=== PATIENT | female | born 1950 | race Caucasian/White ===

== ENCOUNTER 2016-07-23 12:34 | Inpatient (IN) | payer MEDICARE, OTHER ==
--- NOTE | ~2016-07-23 | DS ---
Discharge Summary [facility] [address] [place]. [address] NAME: MELYSSA RECIO : 46 STATUS : ADM IN [facility]#: [id number] AGE: 66 ADM/REG DATE : 07/27/16 MR#: [id number] REPORT SERV DATE: 07/31/16 DICTATED BY: Melissa HOWE DATE: 07/31/16 REPORT STATUS : Draft TRANSCRIBED BY: MODL DATE: 07/31/16 ADMISSION DATE: 07/27/2016 DISCHARGE DATE: INTERIM SUMMARY DATE: 07/31/2016. DIAGNOSES AT THE TIME OF INTERIM SUMMARY: Acute kidney injury/chronic kidney disease stage 4, wgvnp-zb-yqrbrwc anemia; nausea and vomiting, resolved; atrial fibrillation, on Eliquis and metoprolol, sick sinus syndrome, status post pacemaker placement, demand ischemia, coronary artery disease, previous liver transplant, insulin-requiring diabetes. CONSULTS: Electrophysiology, Nephrology. PROCEDURES: Pacemaker placement. BRIEF HOSPITAL COURSE: A 66-year-old female patient was admitted with fatigue, malaise, nausea, and vomiting of uncertain etiology. While on observation in the hospital, she had a 30 second sinus pause concerning for sick sinus syndrome. She was seen by Electrophysiology and a permanent pacemaker was placed without difficulty. With regard to her nausea and vomiting, she is a long-standing diabetic and it was felt likely either medication-related or gastroparesis-related. Her Prograf level was checked and found to be unremarkable. The patient was placed on Reglan with good clinical results. This was transitioned to oral therapy and continued. The patient did require transfusion of 1 unit of blood for acute-on- chronic anemia. Based on her current poor functional status, physical therapy has recommend rehabilitation. The patient is agreeable to [facility]. They will likely not have available bed till Wednesday, but the tentative plan is to continue to monitor her chronic medical issues, monitor her lab data, and transition her to [facility] on 08/03/2016. The patient continues to be followed by the Hospitalist Service, but Electrophysiology is signed off, and Nephrology is signed off. The patient has been started on Eliquis for chronic atrial fibrillation and now that her pacemaker is in place. She remains on oral metoprolol. As mentioned above, she is on oral Reglan for her nausea likely secondary to underlying poor gastric function. We will recheck electrolytes and blood counts tomorrow and continue her current medical therapy. Based on her most recent creatinine, Nephrology has recommended restarting lisinopril 10 mg daily and Bumex 1 mg daily. These will be restarted today, 07/31/2016, and we will follow up lab work over the weekend. [facility]/HUONG Melissa Howe M.D. / [id number] Discharge Summary [address] [address] NAME: MELYSSA RECIO : 46 STATUS : ADM IN [facility]#: [id number] AGE: 66 ADM/REG DATE : 07/27/16 MR#: [id number] REPORT SERV DATE: 07/31/16 DICTATED BY: Melissa HOWE DATE: 07/31/16 REPORT STATUS : Draft TRANSCRIBED BY: HOUNG DATE: 07/31/16 CC: Deepak Sinha MD
--- NOTE | ~2016-07-23 | DS ---
Discharge Summary [facility] [address] [place]. [address] NAME: MELYSSA RECIO : 46 STATUS : DIS IN PAT#: [id number] AGE: 66 ADM/REG DATE : 07/27/16 MR#: [id number] REPORT SERV DATE: 08/06/16 DICTATED BY: ОЛЕГ DEGROOT DATE: 08/05/16 REPORT STATUS : Draft TRANSCRIBED BY: MODL DATE: 08/05/16 ADMISSION DATE: 07/27/2016 DISCHARGE DATE: 08/05/2016 CONSULTING PHYSICIAN: Dr. Finney and Dr. Levi Davila for Cardiology; Renal, Dr. Delarosa; outpatient, Dr. Rodriguez in the hospital. FINAL DIAGNOSES: 1. Status post acute kidney injury on chronic kidney disease 4. 2. Acute on chronic anemia, status post two units packed red blood cells. 3. Atrial fibrillation. 4. Sick sinus syndrome, status post permanent pacemaker placement. 5. Coronary artery disease. 6. History of liver transplant. 7. Diabetes. HOSPITAL COURSE: Please refer to the H and P done by Dr. Murillo on 07/23/2016, the interim discharge summary done by Dr. Haney on 07/26/2016, the interim discharge done with Dr. Shyam Brenner on 07/31/2016. Since I took care of this patient, the patient is already doing well and all of the consultants have signed off. The patient was just waiting for the rehab placement and we now got [facility] to accept her. The patient will now be discharged to [facility] with the above diagnoses. She is going to be on the following medications. Eliquis 2.5 mg twice a day, aspirin 81 mg a day, Voltaren gel four times a day p.r.n. pain to the right hand, Bumex down to 1 mg a day, vitamin D 1000 units a day, subcu insulin protocol level 2, Xalatan eye drops on both eyes at bedtime, Prinivil 10 mg a day, metoprolol 50 mg every eight hours, potassium 10 mEq a day, Florastor one capsule a day, sodium bicarb 650 mg twice a day, Carafate 1 g before meals and at bedtime, Prograf 1 mg three times a day, hydralazine 25 mg three times a day, Levemir 10 units at bedtime, Lipitor 40 mg at bedtime, Pepcid 20 mg a day, iron 325 mg twice a day, Imdur 30 mg a day, timolol one drop to both eyes, zinc tablet once a day, albuterol three times a day p.r.n. Tylenol p.r.n., Zofran and Phenergan p.r.n. The patient will follow up with her rehab doctors, then follow up with her PCP, Louise Tong, after rehab discharge. Follow up with Dr. Finney in a month and Dr. Delarosa in three to four weeks. This has been explained to the patient and she agreed and understood the plan. [facility]/HUONG Олег Degroot M.D. / [id number] Discharge Summary [address] [address] NAME: MELYSSA RECIO : 46 STATUS : DIS IN PAT#: [id number] AGE: 66 ADM/REG DATE : 07/27/16 MR#: [id number] REPORT SERV DATE: 08/06/16 DICTATED BY: ОЛЕГ DEGROOT DATE: 08/05/16 REPORT STATUS : Draft TRANSCRIBED BY: HUONG DATE: 08/05/16 CC: Deepak Gonzalez MD
--- NOTE | ~2016-07-23 | IDS ---
Interim Discharge Summary [facility] [address] [place]. [address] NAME: SANGEETA MOLINA : 46 STATUS : ADM IN PAT#: [id number] AGE: 66 ADM/REG DATE : 07/23/16 MR#: [id number] REPORT SERV DATE: 07/26/16 DICTATED BY: VALENTE HINKLE DATE: 07/26/16 REPORT STATUS : Draft TRANSCRIBED BY: MODL DATE: 07/26/16 ADMISSION DATE: 07/23/2016 DISCHARGE DATE: Date of transfer of the patient to [facility] is 07/25/2016. I have had this patient so far until 07/27/2016. Reason for transfer to [facility] is because of acute on chronic encephalopathy, pulmonary edema secondary to acute kidney injury/chronic kidney disease, which is almost end-stage renal disease, rapid atrial fibrillation with ventricular response rate that was rapid and the patient had to have IV Cardizem to revert her back to sinus rhythm, elevated troponin, and multiple cardiac and renal issues. DIAGNOSES: So far include the followin. Acute kidney injury, on chronic kidney disease, stage V/end-stage renal disease. The patient may require hemodialysis in the very near future. Nephrology is following. Over the weekend, the patient was seen by Dr. Osmin Rodriguez and also Dr. Laz Babin. 2. New onset atrial fibrillation with rapid ventricular response rate. The patient has been on intravenous Cardizem drip up until 07/26/2016. Now the patient's IV Cardizem has been discontinued, and the patient seems to be in sinus rhythm, and her ventricular response rate is also controlled and heart rate is in the 70s to 80s. Dr. Finney is following the patient. 3. Elevated troponin. It could be secondary to demand-related/decreased troponin clearance because of renal failure/the patient could have experienced an fzx-RP-bzsqdca elevation myocardial infarction; however, the patient is not a candidate for cardiac catheterization at this time given her renal function. 4. Chronic diastolic heart failure and right ventricular failure with an ejection fraction that is preserved at 55%. 5. Diabetes mellitus, which is insulin requiring. This is stable as of now with the current insulin regimen. BRIEF HOSPITAL COURSE: Ms Sangeeta Molina is a 66-year-old female patient, who was initially admitted under observation by Dr. Murillo. The patient has a known chronic kidney disease, stage IV, who is being followed by Nephrology, but when she came in, the patient essentially came in with chest discomfort and palpitations and increasing difficulty breathing. The patient was found to be in new onset atrial fibrillation within 24 hours of admission and was started on intravenous Cardizem drip to control the ventricular response rate. Troponin I came back elevated also. At this time, we were not sure if the troponin elevation was demand-related or because of decreased clearance, because of renal dysfunction, or if the patient was experiencing an acute coronary syndrome, may be a combination. However, Cardiology consultation was obtained. As the patient also was slightly confused and started becoming more and more lethargic and her creatinine continued to rise, the patient was moved to [facility] and Nephrology continued to follow. The patient was very close to dialysis and we almost thought that she would have to undergo hemodialysis on 07/25/2016 itself. However, Dr. Babin, who saw the patient on 07/26/2016, felt that her Interim Discharge Summary [address] [address] NAME: SANGEETA MOLINA : 46 STATUS : ADM IN PAT#: [id number] AGE: 66 ADM/REG DATE : 07/23/16 MR#: [id number] REPORT SERV DATE: 07/26/16 DICTATED BY: VALENTE HINKLE DATE: 07/26/16 REPORT STATUS : Draft TRANSCRIBED BY: MODMerissa DATE: 07/26/16 creatinine had improved slightly and would like to give her another 24 to 48 hours to see if she improved. If not and if there continues to be deterioration in her renal function, she may need hemodialysis very soon. However, regarding her cardiac function, her atrial fibrillation reverted back to sinus rhythm, and the patient was weaned off Cardizem drip. Currently, her heart rate seems to be stable with ventricular rate of about 70 to 90 per minute, and the patient continues to be in sinus rhythm. Regarding her mental status, her encephalopathy has improved slightly and even though the patient is somewhat lethargic, she is arousable, and she is oriented to person and place. She is able to follow simple commands. Hence, at this time, both Cardiology and Renal specialist following the patient, she continues to be in IMCU and could be a candidate for hemodialysis. RRA/MODL Valente Hinkle M.D. / [id number] CC: Deepak Grove MD
--- NOTE | ~2016-07-23 | HP ---
History And Physical [address] [address] NAME: MELYSSA RECIO : 46 STATUS : ADM IN [facility]#: [id number] AGE: 66 ADM/REG DATE : 07/23/16 MR#: [id number] REPORT SERV DATE: 07/23/16 DICTATED BY: ANUM BYERS DATE: 07/23/16 REPORT STATUS : Draft TRANSCRIBED BY: MODL DATE: 07/23/16 DATE OF ADMISSION: 07/23/2016 EXAMINING PHYSICIAN: Anum Byers M.D. REASON FOR ADMISSION: Nausea and vomiting, possible dehydration with acute on chronic renal failure. HISTORY OF PRESENT ILLNESS: This is a 66-year-old white female, who was discharged from [facility]. She had gone there after rehabilitation from previous hospitalization and had been recovering. She became a very quickly as her went downhill and within a three-month period of time. She began having some vomiting about three days ago. She did have some nausea and abdominal discomfort, and possibly some abdominal pain, but not to where it could be localized. She has had no fever, chills, or night sweats. She has a problem with diabetes type 2 and developed liver failure from non- alcoholic steatohepatitis associated with diabetes and obesity. She underwent CABG prior to her liver transplantation, has been on medication to suppress the rejection, and they were recently changed, and the family has questions about why the medication was changed. Her list of medications include the Prograf that was given b.i.d., but increased to t.i.d. during her stay at the assisted living facility. PAST MEDICAL HISTORY: She has had coronary artery disease, had CABG in 2009. She had liver transplantation that same year in 12/2009 for the BAKER and liver failure. She does have a longstanding history of hypertension. She uses insulin for type 2 diabetes, about 14 units of NovoLog before each meal. She has chronic kidney disease stage 4. Baseline creatinine was 2.5, now up to about 3. Her creatinine today is up to 3.89. She is following with by Dr. Micha Delarosa. She has a history of morbid obesity and peripheral vascular disease with history of angioplasty previously. She had been treated in the hospital for congestive heart failure and chronic diastolic and history of atrial fibrillation, was on Eliquis, but this has been discontinued. She has also had a cholecystectomy, tonsillectomy, right femoral and anterior tibial angioplasty, and right carpal tunnel syndrome in the past. ALLERGIES: NONE ARE KNOWN. SOCIAL HISTORY: She lives in [place], now , and living alone. Her daughters come in and fix her medicine for her and she had been doing well, but she had just been discharged from the assisted living for about one week. She quit smoking cigarettes somewhere around 2008, but smoked for many years. No one has told her she has emphysema. She has been following with Dr. Butts at [facility] for liver tests and she has not had this tested in a while. She does wear oxygen at home 2 to 3 L/minute by nasal cannula. This is because of her episodic diastolic congestive heart failure. She has no specific abdominal pain. Only generalized abdominal discomfort and the nausea History And Physical [address] [place]. [address] NAME: MELYSSA RECIO : 46 STATUS : ADM IN [facility]#: [id number] AGE: 66 ADM/REG DATE : 07/23/16 MR#: [id number] REPORT SERV DATE: 07/23/16 DICTATED BY: ANUM BYERS DATE: 07/23/16 REPORT STATUS : Draft TRANSCRIBED BY: HUONG DATE: 07/23/16 and vomiting. FAMILY HISTORY: There is no chronic kidney disease, no diabetes, and no liver disease, but some history of hypertension in the family. REVIEW OF SYSTEMS: She has had no chest pain. Some shortness of breath. No fever, chills, or night sweats. No melena, hematemesis, fits, seizures, convulsions, or unilateral weakness. She has chronic diarrhea. She uses Welchol for the chronic diarrhea and has had soft bowel movements even today. She is not obstructed. She has had no swelling in lower extremities. She has not been on hemodialysis in the past. MEDICATION LIST: As of 05/05 was Prograf 1 mg b.i.d., diltiazem 360 mg p.o. daily, isosorbide mononitrate ER 30 mg p.o. b.i.d., PhosLo 667 mg three times a day, Bumex 2 mg p.o. daily, Welchol 625 mg taking three every morning. She was taken off her Eliquis. She is on metoprolol 25 mg p.o. b.i.d., hydralazine 25 mg p.o. q.8 hours, cholecalciferol D3 at 20,000 units every morning, xxiw-kbs-maafahy probiotic. She had been taken off gabapentin, was on aspirin 81 mg daily, jhhy-tux-srmyjto zinc 200 mg at noon, potassium chloride 10 mEq daily, and atorvastatin 40 mg at bedtime, famotidine 20 mg p.o. q.a.m., ferrous sulfate 325 p.o. daily. In addition to this, she was on 14 units of NovoLog insulin before each meal and Lantus 40 units at bedtime, Combivent inhaler four times a day, latanoprost drops one drop at bedtime, timolol one drop twice a day in both eyes, and Ambien at nighttime for sleep. The daughter has a question why the medication had been changed. It is unclear to me as well. In addition to the above, she is taking Bumex 1 mg p.o. every morning, methscopolamine, metoprolol 50 b.i.d., and sucralfate. PHYSICAL EXAMINATION: GENERAL: This is an obese white female, in moderate distress. Vomit bag at bedside. VITAL SIGNS: Her blood pressure was 123/57 and repeat was 96/52. Temperature is 97 degrees, her oxygen saturation 95% on room air. HEENT: EOMI. Sclerae are clear. Conjunctivae pink. NECK: No bruit, without any JVD. CHEST: Clear anterior and laterally. HEART: Regular S1, S2 without murmur, gallop, or click. ABDOMEN: Obese and diffusely slightly tender. No specific point tenderness is noted. Bowel sounds are positive. No mass was felt. There is fullness in the area of the liver. RECTAL: Deferred. EXTREMITIES: Have no edema and distal pulses are trace in the dorsalis pedis and posterior tibial, but appear to be symmetric. Pulses are diminished. NEUROLOGIC: DTRs are trace at the knee joint, nothing at the ankle jerk. 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 Sensory is subjectively intact to touch. She is alert and oriented. Speech is cogent and goal directed. SKIN: Without rash, ecchymosis, or bruising. BREASTS: Grossly without mass. History And Physical [address] [place]. [address] NAME: MELYSSA RECIO : 46 STATUS : ADM IN PAT#: [id number] AGE: 66 ADM/REG DATE : 07/23/16 MR#: [id number] REPORT SERV DATE: 07/23/16 DICTATED BY: ANUM BYERS DATE: 07/23/16 REPORT STATUS : Draft TRANSCRIBED BY: HUONG DATE: 07/23/16 LYMPHATICS: There is no adenopathy palpable. LABORATORY DATA: Chest x-ray shows cardiomegaly with prior CABG, but no acute cardiopulmonary process. Splenomegaly is noted similar to the previous CT. There is no evidence of free air nor obstructive pattern. Her lactate level was elevated at 3.2 and she does have evidence of metabolic acidosis with a PaCO2 of 18, BUN of 72, creatinine of 3.87. Sodium 140, potassium 3.7, chloride 107, and glucose is 55 on arrival. Calcium 8.4, albumin 2.9, lipase was 90, alkaline phosphatase slightly elevated at 353. Her hemoglobin is 10.0, hematocrit 30.3, white count 14.4, and her platelets are 17,800. ASSESSMENT: 1. Nausea and vomiting, three days' duration, likely an acute episode; however, there are contributory factors. 2. Metabolic acidosis. We will try to treat this and see if it helps her problems. 3. Diabetes type 2. 4. Nonalcoholic steatohepatitis, status post liver transplant. 5. Hiccups. 6. Chronic diarrhea, treated with Welchol. 7. History of fatty liver. 8. Possible weight loss, baseline is 200 pounds. We will weigh here and daily. 9. History of CABG x4 in 2009. 10.History of pneumonia, treated about six weeks ago. 11.Insomnia and persistent nausea problems. PLAN: I am going to give her some IV fluid and correct the acidosis with bicarb, then give her oral bicarbonate, and recheck the BMP. For the hiccups, I am going to add a small dose of Reglan, which may help the nausea as well as increased gastric emptying, as she does have longstanding diabetes and may have gastroparesis. I will check her weight to see if there is significant weight loss. Consider doing a prealbumin if she does not return back to eating soon. She has had no chest pain or shortness of breath and I believe the CABG and revascularization along with medications are stable at this point. We will check CT scan of the abdomen if she does not improve or consider gastric emptying study looking for gastroparesis. We are going to try to identify her medication she was taking and restart medication list close to that of her April list of therapies. DB/MODL History And Physical [address] [address] NAME: MELYSSA RECIO : 46 STATUS : ADM IN PAT#: [id number] AGE: 66 ADM/REG DATE : 07/23/16 MR#: [id number] REPORT SERV DATE: 07/23/16 DICTATED BY: ANUM BYERS DATE: 07/23/16 REPORT STATUS : Draft TRANSCRIBED BY: HUONG DATE: 07/23/16 Anum Byers M.D. / [id number] CC: Magdi Mensah Jr, MD Martha Ziegler, MD Claude Galphin, M.D.
--- NOTE | ~2016-07-23 | CN ---
Consultation Report [facility] [address] [place]. [address] NAME: SANGEETA MOLINA : 46 STATUS : ADM [facility] PAT#: [id number] AGE: 66 ADM/REG DATE : 07/23/16 MR#: [id number] REPORT SERV DATE: 07/27/16 DICTATED BY: LEVI DAVILA DATE: 07/27/16 REPORT STATUS : Draft TRANSCRIBED BY: MODL DATE: 07/27/16 ELECTROPHYSIOLOGY CONSULTATION DATE OF CONSULTATION: 07/27/2016 INDICATION: Asystole, syncope. HISTORY OF PRESENT ILLNESS: Sangeeta Molina is a 66-year-old female, who was admitted on 07/23/2016. The patient has a history of coronary artery disease, previous bypass grafting, diabetes, history of a liver transplant, obesity, chronic kidney disease, atrial fibrillation, C diff, peripheral vascular disease. She was admitted on 07/23/2016 with nausea and vomiting, aernf-us-pvkcqqk kidney injury. She was found to have atrial fibrillation. This was felt to be recurrent. Cardiology was consulted. She was placed on Cardizem drip. She has now had several pauses, the longest being 9 seconds during ongoing atrial fibrillation. She had pauses up to 6 seconds on 07/24/2016 and then a 9 seconds pause associated with syncope this morning. The patient currently has some malaise and fatigue, but no chest pain or shortness of breath. PAST MEDICAL HISTORY: As described. MEDICATIONS: Aspirin, vitamin D, subcu heparin last dose 09:00 a.m. this morning, sliding scale insulin, Xalatan, Lopressor, Remeron, Florastor capsules, potassium, sodium bicarb, Carafate, Prograf, Timoptic, zinc, and Levemir. ALLERGIES: NONE KNOWN. SOCIAL HISTORY: No present smoking or alcohol. FAMILY HISTORY: Reviewed, noncontributory. REVIEW OF SYSTEMS: As per the HPI. Otherwise, all other review of systems negative. PHYSICAL EXAMINATION: VITAL SIGNS: Blood pressure of 112/58, pulse is 96, respiratory rate is 18. GENERAL: Appears stated age, no distress. EYES: Sclerae anicteric, no arcus senilis. MOUTH: Oral mucosa moist, lips acyanotic. NECK: Jugular venous pressure normal, no carotid bruits. LUNGS: Clear to auscultation bilaterally, normal inspiratory effort. Diminished breath sounds bilateral bases. CARDIAC: Regular rate and irregular rhythm, no murmurs, gallops or rubs. Consultation Report [facility] [address] [place]. [address] NAME: SANGEETA MOLINA : 46 STATUS : ADM [facility] PAT#: [id number] AGE: 66 ADM/REG DATE : 07/23/16 MR#: [id number] REPORT SERV DATE: 07/27/16 DICTATED BY: LEVI DAVILA DATE: 07/27/16 REPORT STATUS : Draft TRANSCRIBED BY: HUONG DATE: 07/27/16 ABDOMEN: Soft, nondistended, nontender. EXTREMITIES: No edema. SKIN: Warm and dry. NEURO/PSYCH: Alert and oriented, nonfocal, mood appropriate. LABORATORY DATA: Potassium is 3.8, creatinine is 3.6, magnesium is 1.6. Hemoglobin is 7.7. Troponin peak 3 and felt to be demand ischemia per the notes. Platelets 165. TSH 2.27. Telemetry strips, atrial fibrillation with periods of asystole up to 9 seconds as described above. ECG from this morning is atrial fibrillation with a ventricular response of 118 beats per minute, anterior infarct pattern with possible inferior ischemic changes. IMPRESSION: 1. Sick sinus syndrome with associated asystole and syncope. 2. Paroxysmal atrial fibrillation. 3. Coronary artery disease, previous bypass grafting. 4. Status post orthotopic liver transplant. 5. Acute kidney injury in the context of chronic kidney disease. RECOMMENDATIONS: Plan to proceed with an urgent pacemaker today given 9 seconds pause and associated asystole. The patient received subcutaneous heparin at 09:00 a.m. this morning and had breakfast this morning as well. Discussed situation in depth with patient and daughter. Addressed rationale logistics and risk, risk include, but not limited to bleeding, infection, vascular complications, failure to place lead, lead dislodgement, myocardial infarction, stroke. All questions were answered and they wished to proceed. Ejection fraction is 55% by echocardiogram. SHELLY/HUONG Levi Davila M.D. / [id number] CC: Deepak Sinha MD
--- NOTE | ~2016-07-23 | CN ---
Consultation Report [facility] [address] [place]. [address] NAME: MELYSSA MOLINA : 46 STATUS : ADM IN [facility]#: [id number] AGE: 66 ADM/REG DATE : 07/23/16 MR#: [id number] REPORT SERV DATE: 07/24/16 DICTATED BY: MAGDI MADDEN DATE: 07/24/16 REPORT STATUS : Draft TRANSCRIBED BY: MODL DATE: 07/24/16 CARDIOLOGY CONSULTATION DATE OF CONSULTATION: [facility] PHYSICIAN: Magdi Madden MD. INDICATION: A 66-year-old woman with atrial fibrillation. HISTORY OF PRESENT ILLNESS: Ms. Molina is a 66-year-old woman, well known to me with a history of coronary artery disease, status post previous bypass surgery; also with cirrhosis, status post liver transplant. She was at home and has been under lot of stress with the recent of her . She has had problems with recurrent nausea and vomiting and not holding very much down, also with associated diarrhea. She felt weak and had a poor appetite and was brought to the hospital by family. She was admitted and last night developed some rapid atrial fibrillation. While giving a high dose of Cardizem, had two pauses, which were asymptomatic. She is now on a stable Cardizem drip dose with a heart rate in the 100s. She has no palpitations, but she does have generalized fatigue and weakness. She still has no appetite and is not holding anything down from her oral standpoint. The review of systems is as per the history of present illness. 10 other systems are negative. PAST MEDICAL HISTORY: 1. Paroxysmal atrial fibrillation, status post cardioversion in 02/2015. 2. Peripheral vascular disease. 3. Hypertension. 4. Hypercholesterolemia. 5. Coronary artery disease with bypass surgery in 2009. 6. History of liver transplant in 2009. 7. Diabetes. 8. 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 FAMILY HISTORY: Noncontributory. SOCIAL HISTORY: The patient is . No tobacco or alcohol. ALLERGIES: NO KNOWN DRUG ALLERGIES. HOME MEDICATIONS: Tylenol, Ventolin, aspirin 81 daily, atorvastatin 40 daily, Bumex 2 p.o. daily, vitamin D, WelChol, Voltaren, ferrous sulfate, hydralazine 25 p.o. b.i.d., insulin, Imdur 30 daily, , lisinopril 20 daily, methscopolamine bromide as Consultation Report [address] [place]. [address] NAME: MELYSSA MOLINA : 46 STATUS : ADM IN PAT#: [id number] AGE: 66 ADM/REG DATE : 07/23/16 MR#: [id number] REPORT SERV DATE: 07/24/16 DICTATED BY: MAGDI MADDEN DATE: 07/24/16 REPORT STATUS : Draft TRANSCRIBED BY: HUONG DATE: 07/24/16 directed, metoprolol 50 mg p.o. b.i.d., Zofran, potassium, Phenergan, Florastor, Carafate, Prograf, timolol eye drops, zinc, and Ambien. PHYSICAL EXAMINATION: VITAL SIGNS: Heart rate is 104, blood pressure 119/59. GENERAL: The patient is a pleasant, elderly white female, in no apparent distress. She has general pallor. HEENT: Conjunctivae are anicteric, no xanthelasma, lips without cyanosis. NECK: Supple, normal JVP, carotids +2 without bruit. LUNGS: Decreased breath sounds bilaterally. CARDIOVASCULAR: Irregularly irregular. Normal S1, S2. ABDOMEN: Soft, nontender, nondistended, with normal bowel sounds. No hepatomegaly. EXTREMITIES: No clubbing or cyanosis. NEURO/PSYCH: Alert and oriented to person, place and time. No obvious neurologic deficits. Mood and affect normal. DATA: Review of EKG and telemetry strips show sinus rhythm reverting to atrial fibrillation with rapid ventricular response. Two pauses noted, nonspecific ST-segment changes. IMPRESSION: 1. Recurrent nausea, vomiting, and diarrhea of unclear etiology. 2. History of liver transplant in 2009. 3. Coronary artery disease, history of bypass surgery 2009. 4. History of paroxysmal atrial fibrillation, recurrent during this illness. 5. Hypertension. 6. Diabetes. 7. Hypercholesterolemia. 8. Chronic kidney disease with recent worsening renal function. RECOMMENDATIONS: Ms. Molina is stable rate on a Cardizem drip. Her blood pressure is on the low side and probably somewhat clinically dehydrated with worsening renal function. She is having gentle hydration now, but I ordered an echo to re-evaluate her left ventricular function, but for the moment, would stick with rate control strategy with Cardizem. We will see how her blood pressure does over the next day or two. Maybe consider cardioversion early in the week if we can get her back on blood thinners. It is unclear why they were stopped, but it may have been related to her worsening renal function. WO/MODL Magdi Madden M.D., Ph.D, F.A.C.C. / [id number] Consultation Report [address] [place]. [address] NAME: MELYSSA MOLINA : 46 STATUS : ADM IN PAT#: [id number] AGE: 66 ADM/REG DATE : 07/23/16 MR#: [id number] REPORT SERV DATE: 07/24/16 DICTATED BY: MAGDI MADDEN DATE: 07/24/16 REPORT STATUS : Draft TRANSCRIBED BY: MODL DATE: 07/24/16 CC: Ester Haney M.D.
--- NOTE | ~2016-07-23 | CN ---
Consultation Report [facility] [address] [place]. [address] NAME: MELYSSA RECIO : 46 STATUS : ADM IN [facility]#: [id number] AGE: 66 ADM/REG DATE : 07/23/16 MR#: [id number] REPORT SERV DATE: 07/24/16 DICTATED BY: OSMIN RODRIGUEZ DATE: 07/24/16 REPORT STATUS : Draft TRANSCRIBED BY: MODMerissa DATE: 07/24/16 NEPHROLOGY CONSULTATION DATE OF CONSULTATION: 07/24/2016 CHIEF COMPLAINT: Acute kidney insufficiency on stage 4 CKD. HISTORY OF PRESENT ILLNESS: The patient is a 66-year-old white female with significant past medical history of stage 4 CKD (creatinine 2.5 and 3.0; Dr. Delarosa), liver transplant on 2009 ([facility]), type 2 diabetes, diastolic CHF, atrial fibrillation, CABG, presented with a two to three day history of complaints of nausea and vomiting. The patient was noted to recently being in a [facility] facility before being discharged home within the past one week. She has family that dispenses her medicines. She had began having vomiting approximately three days ago prior to her admission along with vague abdominal pain. KUB was unremarkable. Labs were unremarkable except for noting a creatinine of 3.87, which increased to 4.03. The patient is noted to have a baseline creatinine that ranges from approximately 2.5 to 3.0. She is also noted to be on tacrolimus for her liver transplant. She has had renal ultrasounds in postvoid residuals as an outpatient with no signs of urinary retention or obstructive uropathy in the past. She does not have an up-to-date renal ultrasound. Her urinalysis in the past has not revealed any microscopic hematuria or proteinuria at her office, but she is noted to have some microscopic hematuria today. PAST MEDICAL HISTORY/PAST SURGICAL HISTORY: As mentioned in the HPI. In addition, she has had a cholecystectomy, iron-deficiency anemia, hyperparathyroidism, cholecystectomy, PVD, right carpal tunnel syndrome, and splenomegaly. SOCIAL HISTORY: She is a . Has family. No tobacco, alcohol, or drugs. FAMILY MEDICAL HISTORY: No known kidney disease. ALLERGIES: NO KNOWN DRUG ALLERGIES. CURRENT MEDICATIONS: Include tacrolimus 1 mg p.o. b.i.d., , potassium chloride 10 mEq daily, vitamin D, and Levemir. REVIEW OF SYSTEMS: Complete review of systems is done, otherwise stated in the HPI. PHYSICAL EXAMINATION: VITAL SIGNS: In's 1325 and out's 100. Temperature is 98, pulse is 95, and blood pressure is 132/57. GENERAL: She is obese, in no apparent distress. Appears hypovolemic. SKIN: No petechiae or purpura. NECK: No JVP. Trachea midline. No lymphadenopathy. Consultation Report [address] [place]. [address] NAME: MELYSSA RECIO : 46 STATUS : ADM IN PAT#: [id number] AGE: 66 ADM/REG DATE : 07/23/16 MR#: [id number] REPORT SERV DATE: 07/24/16 DICTATED BY: OSMIN RODRIGUEZ DATE: 07/24/16 REPORT STATUS : Draft TRANSCRIBED BY: HUONG DATE: 07/24/16 NEUROLOGIC: She is alert and oriented x3. Moves all 4 extremities. RESPIRATORY: Clear to auscultation bilaterally. ABDOMEN: Soft, nontender, nondistended. Positive bowel sounds. EXTREMITIES: No peripheral edema. PSYCH: Appropriate mood and affect. LABORATORY AND X-RAY DATA: Sodium is 139, potassium 4.1, chloride is 108, CO2 is 18, BUN is 72, creatinine is 4.03, and glucose is 108. Calcium is 8. Magnesium is 1.8. Phosphorus is 3.8. White blood cell count is 10.5, hemoglobin 9.2, platelets are 231. Urinalysis shows no proteinuria. Plus microscopic hematuria. Blood and urine cultures are pending. Chest x-ray, no infiltrates or effusions. Echocardiogram, pending. Renal ultrasound, pending. ASSESSMENT: 1. Acute kidney insufficiency on stage 4 chronic kidney disease (baseline creatinine 2.5 and 3.0; Dr. Delarosa) secondary to suspected acute tubular necrosis in the setting of nausea and vomiting, diuretics, tacrolimus, and decreased p.o. intake. Note that with her stage 4 chronic kidney disease with baseline creatinine of 2.5 and 3.0, possibility the patient has progressed to stage 5 chronic kidney disease in the setting of diabetes and tacrolimus for liver transplant. 2. Microscopic hematuria. 3. Anion gap, metabolic acidosis. 4. Diastolic congestive heart failure, CABG, and atrial fibrillation. 5. Anemia. 6. Liver transplant. PLAN: 1. Renal ultrasound. 2. Gentle IV fluids with bicarb. 3. Check tacrolimus level. Until then, I would hold it for the next 24 to 36 hours and re- evaluate dosing. 4. Monitor serial labs to monitor renal function. Strict I's and O's. 5. No acute indication for hemodialysis. However, the patient with past medical history and acute issues, may have progressed to ESRD. We will re-evaluate her renal function over the weekend. There is no acute indication for hemodialysis at this time. Follow up on cultures. Consultation Report [address] [place]. [address] NAME: MELYSSA RECIO : 46 STATUS : ADM IN [facility]#: [id number] AGE: 66 ADM/REG DATE : 07/23/16 MR#: [id number] REPORT SERV DATE: 07/24/16 DICTATED BY: OSMIN RODRIGUEZ DATE: 07/24/16 REPORT STATUS : Draft TRANSCRIBED BY: HUONG DATE: 07/24/16 RUBI/HUONG Osmin Rodriguez M.D. / [id number] CC: Ester Haney M.D.
[~2016-07-23 12:34] MED LIST: ACET500CAP PO; ACT300 PO; AMARYL2 PO; AMARYL4 PO; AMB10 PO; AMB5 PO; AMERIGEL TOP; AMOXIL500 MG PO; APRES25 PO; ASAB PO; AUG500 PO; AVASTIN OP; BACDS PO; BETIMOL0.5 % OPH; BIST PO; BUM1 PO; BUM2 PO; CALTRA600D PO; CARDCD180 PO; CARDIZEM LA360 MG PO; COMBIVENT RESPIM4 GM INH; CONSTULOSE PO; COR20 PO; COR40 PO; COZ25 PO; COZAAR100 MG PO; DEMA100 PO; DEMA20 PO; DSS PO; ELIQUIS 2.5 MG2.5 MG PO; ELIQUIS 5 MG TAB5 MG PO; ENULOSE PO; FESO4 PO; FLORASTOR250 MG PO; FOLIC ACID; FOLIC PO; HALF81 PO; IMDUR30 PO; IODOSORB TOP; K500 PO; KDUR20 PO; KLOR-CON 1010 MEQ PO; KLOR-CON M1010 MEQ PO; L20 PO; L40 PO; L80 PO; LANTUS SC; LANTUSCART SC; LIPITOR40 PO; LOP100 PO; LOP25 PO; LOP50 PO; MULTIPLE VIT PO; MULTIVITAMI1 PO; NEUR300 PO; NOVOLOG SC; NOVOPEN SC; OTC PROBIOTIC PO; OXYCOD PO; PCET PO; PERCOCET1 TA2 PO; PERCOCET1 TA4 PO; PHOSLO PO; PLAVIX; PLAVIX PO; PR25 PO; PRILO PO; PRILOSEC40 MG PO; PROAIR HFA INH; PROBIOTIC PO; PROGRAF; PROGRAF 1 MG; PROGRAF0.5 PO; PROGRAF1 PO; PROGRAF5; PROTONIX PO; PROVHFA INH; REST15 PO; SODIUM BICARB PO; SPIRO25 PO; SPIRO50 PO; TIAZA4 PO; TIMOLOL GEL0.25 % OPH; TIMOLOL MAL0.25 % OP; TUMSROLL PO; ULTRAM50 PO; VALTREX5 PO; VANC125UDL PO; VITAMIN A8000 UNIT PO; VITAMIN D31000 UNIT PO; VITAMIN E PO; VITD PO; VITE PO; Vitamin E PO; WELCHOL 625 MG625 MG PO; XALAT OP; XALAT OPH; XIFAXAN PO; Z5 PO; ZINC 50 MG PO; ZINC 50MG OTC PO
[2016-07-23 14:13] LABS: BASOPHILS 0.1 %; BASOPHILS ABSOLUTE 0.01 10/3/uL (0.0-0.16); EOSINOPHILS 0.4 %; EOSINOPHILS ABSOLUTE 0.05 10/3/uL (0.0-0.53); HEMATOCRIT 30.3 % (36.0-48.0); IMMATURE GRANULOCYTES 0.5 %; IMMATURE GRANULOCYTES ABSOLUTE 0.07 10/3/uL (0.0-0.11); LYMPHOCYTES 14.6 %; LYMPHOCYTES ABSOLUTE 2.06 10/3/uL (0.67-4.30); MEAN CORPUSCULAR HEMOGLOB 27.1 pg (26.0-34.0); MEAN PLATELET VOLUME 11.4 fL (9.2-13.0); MONOCYTES 7.2 %; MONOCYTES ABSOLUTE 1.02 10/3/uL (0.21-1.20); NEUTROPHILS 77.2 %; NEUTROPHILS ABSOLUTE 10.91 10/3/uL (2.02-8.40); PLATELET COUNT 279 10/3/uL (150-400); RED CELL COUNT 3.69 10/6/uL (4.0-5.6); WHITE BLOOD CELLS 14.1 10/3/uL (4.5-10.5)
[2016-07-23 14:14] LABS: MEAN CORPUSCULAR VOLUME 82.1 fL (80-100); RBC DISTRIBUTION WIDTH 17.8 % (12.0-16.0)
[2016-07-23 14:15] LABS: MANUAL DIFF NO %
[2016-07-23 14:26] LABS: A/G RATIO 0.7 (0.7-1.9); ALBUMIN 2.9 G/DL (3.5-5.0); CALCIUM, SERUM 8.4 MG/DL (8.5-10.4); CHLORIDE, SERUM 107 MMOL/L (96-112); GLOBULIN 3.9 G/DL (2.5-4.1); POTASSIUM, SERUM 3.7 MMOL/L (3.5-5.3); SGOT(AST) 6 U/L (5-40); SGPT(ALT) 15 U/L (5-65); SODIUM, SERUM 140 MMOL/L (135-148); TOTAL BILIRUBIN 0.5 MG/DL (0-1.2); TOTAL PROTEIN 6.8 G/DL (6.0-8.5)
[2016-07-23 14:28] LABS: ALKALINE PHOSPHATASE 153 U/L (45-117); BUN (BLOOD UREA NITROGEN) 72 MG/DL (6-23); CO2 (CARBON DIOXIDE) 18 MMOL/L (24-34); CREATININE 3.87 MG/DL (0.55-1.02); GFR AFRICAN AMERICAN 13 ML/MIN (>=60); GFR NON AFRICAN AMERICAN 11 ML/MIN (>=60); GLUCOSE, SERUM 55 MG/DL (60-99)
[2016-07-23 14:32] LABS: LACTATE 3.2 MMOL/L (0.3-2.4)
[2016-07-23] MEDS ORDERED: ASAB PO (16:29)
[2016-07-23] MEDS ORDERED: LIPITOR40 PO (16:31)
[2016-07-23] MEDS ORDERED: BUM1 PO (16:32)
[2016-07-23] MEDS ORDERED: PEP20 PO (16:32)
[2016-07-23] MEDS ORDERED: APRES25 PO (16:33)
[2016-07-23] MEDS ORDERED: FLORASTOR250 MG PO (16:33)
[2016-07-23] MEDS ORDERED: FERROUS SULF325 M1 PO (16:33)
[2016-07-23] MEDS ORDERED: METHSCOPOLAM2.5 MG PO (16:34)
[2016-07-23] MEDS ORDERED: XALAT OPH (16:34)
[2016-07-23] MEDS ORDERED: IMDUR30 PO (16:34)
[2016-07-23] MEDS ORDERED: LEVEMIR SC (16:34)
[2016-07-23] MEDS ORDERED: LOP50 PO (16:35)
[2016-07-23] MEDS ORDERED: NOVOLOG SC (16:35)
[2016-07-23] MEDS ORDERED: TIMOLOL MAL0.5 % OPH (16:36)
[2016-07-23] MEDS ORDERED: PROGRAF1 PO (16:36)
[2016-07-23] MEDS ORDERED: SUCR PO (16:36)
[2016-07-23] MEDS ORDERED: K-TABS10 MEQ PO (16:36)
[2016-07-23] MEDS ORDERED: VITAMIN D31000 UNIT PO (16:36)
[2016-07-23] MEDS ORDERED: ZINC TABLET PO (16:37)
[2016-07-23] MEDS ORDERED: ALBUTEROL0.083 % INH (16:37)
[2016-07-23] MEDS ORDERED: WELCHOL 625 MG625 MG PO (16:37)
[2016-07-23] MEDS ORDERED: ACET500CAP PO (16:38)
[2016-07-23] MEDS ORDERED: M-END PE PO (16:38)
[2016-07-23] MEDS ORDERED: VOLTAREN1 % TOP (16:39)
[2016-07-23] MEDS ORDERED: VENTOLIN HFA INH (16:39)
[2016-07-23] MEDS ORDERED: PR12.5 PO (16:39)
[2016-07-23] MEDS ORDERED: ZOFRAN8 PO (16:39)
[2016-07-23] MEDS ORDERED: AMB10 PO (16:40)
[2016-07-23] MEDS ORDERED: PRIN10 PO (16:43)
[2016-07-23 20:07] LABS: PROCALCITONIN 0.08 ng/mL (<0.5)
[2016-07-23 21:39] LABS: ASCORBIC ACID (UR NOT ORDER) NEG (NEG); BILIRUBIN, URINE NEGATIVE (NEG); KETONE, URINE NEGATIVE (NEG); LEUKOCYTE ESTERASE(NOT OR SMALL (NEG); WBC (NOT ORDERED) (RFLEX) 3 (0-5)
[2016-07-24 05:35] LABS: A/G RATIO 0.8 (0.7-1.9); ALBUMIN 2.7 G/DL (3.5-5.0); BUN (BLOOD UREA NITROGEN) 72 MG/DL (6-23); CHLORIDE, SERUM 108 MMOL/L (96-112); CO2 (CARBON DIOXIDE) 18 MMOL/L (24-34); CREATININE 4.03 MG/DL (0.55-1.02); GFR AFRICAN AMERICAN 12 ML/MIN (>=60); GFR NON AFRICAN AMERICAN 11 ML/MIN (>=60); GLOBULIN 3.4 G/DL (2.5-4.1); POTASSIUM, SERUM 4.1 MMOL/L (3.5-5.3); SGOT(AST) 7 U/L (5-40); SGPT(ALT) 14 U/L (5-65); SODIUM, SERUM 139 MMOL/L (135-148); TOTAL BILIRUBIN 0.5 MG/DL (0-1.2); TOTAL PROTEIN 6.1 G/DL (6.0-8.5)
[2016-07-24 05:38] LABS: PHOSPHORUS, SERUM 3.8 MG/DL (2.5-4.5)
[2016-07-24 05:50] LABS: ALKALINE PHOSPHATASE 130 U/L (45-117); GLUCOSE, SERUM 108 MG/DL (60-99)
[2016-07-24 05:51] LABS: BASOPHILS 0.1 %; BASOPHILS ABSOLUTE 0.01 10/3/uL (0.0-0.16); EOSINOPHILS 0.7 %; EOSINOPHILS ABSOLUTE 0.07 10/3/uL (0.0-0.53); HEMATOCRIT 28.6 % (36.0-48.0); HEMOGLOBIN 9.2 g/dL (12.0-16.0); IMMATURE GRANULOCYTES 0.4 %; IMMATURE GRANULOCYTES ABSOLUTE 0.04 10/3/uL (0.0-0.11); LYMPHOCYTES 11.9 %; LYMPHOCYTES ABSOLUTE 1.25 10/3/uL (0.67-4.30); MEAN CORPUS HGB CONC 32.2 g/dL (32.0-36.0); MEAN CORPUSCULAR HEMOGLOB 26.5 pg (26.0-34.0); MEAN CORPUSCULAR VOLUME 82.4 fL (80-100); MEAN PLATELET VOLUME 11.4 fL (9.2-13.0); MONOCYTES 9.5 %; NEUTROPHILS 77.4 %; NEUTROPHILS ABSOLUTE 8.15 10/3/uL (2.02-8.40); PLATELET COUNT 231 10/3/uL (150-400); RBC DISTRIBUTION WIDTH 17.9 % (12.0-16.0); RED CELL COUNT 3.47 10/6/uL (4.0-5.6); WHITE BLOOD CELLS 10.5 10/3/uL (4.5-10.5)
[2016-07-24 05:52] LABS: CK-MB 4.4 NG/ML; CPK 33 U/L (0-200); TROPONIN I 0.07 NG/ML (<0.05)
[2016-07-24 05:53] LABS: MANUAL DIFF NO %
[2016-07-24 12:24] LABS: CK-MB 19.9 NG/ML
[2016-07-24 12:25] LABS: CKMB INDEX (NOT ORD) 19.3; TROPONIN I 2.3 NG/ML (<0.05)
[2016-07-24 21:19] LABS: CK-MB 16.8 NG/ML
[2016-07-24 21:20] LABS: CKMB INDEX (NOT ORD) 25.5; TROPONIN I 3.07 NG/ML (<0.05)
[2016-07-25 05:43] LABS: BASOPHILS 0.2 %; BASOPHILS ABSOLUTE 0.01 10/3/uL (0.0-0.16); EOSINOPHILS ABSOLUTE 0.13 10/3/uL (0.0-0.53); HEMATOCRIT 25.9 % (36.0-48.0); HEMOGLOBIN 8.3 g/dL (12.0-16.0); IMMATURE GRANULOCYTES 0.3 %; IMMATURE GRANULOCYTES ABSOLUTE 0.02 10/3/uL (0.0-0.11); LYMPHOCYTES 24.3 %; LYMPHOCYTES ABSOLUTE 1.56 10/3/uL (0.67-4.30); MEAN CORPUSCULAR HEMOGLOB 26.4 pg (26.0-34.0); MEAN CORPUSCULAR VOLUME 82.5 fL (80-100); MONOCYTES 7.8 %; NEUTROPHILS 65.4 %; PLATELET COUNT 192 10/3/uL (150-400); RED CELL COUNT 3.14 10/6/uL (4.0-5.6); WHITE BLOOD CELLS 6.4 10/3/uL (4.5-10.5)
[2016-07-25 05:46] LABS: MANUAL DIFF NO %
[2016-07-25 06:05] LABS: A/G RATIO 0.8 (0.7-1.9); ALBUMIN 2.4 G/DL (3.5-5.0); ALKALINE PHOSPHATASE 115 U/L (45-117); BUN (BLOOD UREA NITROGEN) 74 MG/DL (6-23); CALCIUM, SERUM 7.8 MG/DL (8.5-10.4); CHLORIDE, SERUM 106 MMOL/L (96-112); CO2 (CARBON DIOXIDE) 22 MMOL/L (24-34); CREATININE 4.01 MG/DL (0.55-1.02); GFR AFRICAN AMERICAN 13 ML/MIN (>=60); GFR NON AFRICAN AMERICAN 11 ML/MIN (>=60); GLUCOSE, SERUM 80 MG/DL (60-99); POTASSIUM, SERUM 3.2 MMOL/L (3.5-5.3); SGOT(AST) 14 U/L (5-40); SGPT(ALT) 11 U/L (5-65); SODIUM, SERUM 139 MMOL/L (135-148); TOTAL BILIRUBIN 0.3 MG/DL (0-1.2); TOTAL PROTEIN 5.4 G/DL (6.0-8.5)
[2016-07-25 12:56] LABS: ASCORBIC ACID (UR NOT ORDER) NEG (NEG); BILIRUBIN, URINE NEGATIVE (NEG); KETONE, URINE NEGATIVE (NEG); LEUKOCYTE ESTERASE(NOT OR NEG (NEG); WBC (NOT ORDERED) (RFLEX) < 1 (0-5)
[2016-07-26 05:22] LABS: BASOPHILS 0.1 %; BASOPHILS ABSOLUTE 0.01 10/3/uL (0.0-0.16); EOSINOPHILS 0.6 %; EOSINOPHILS ABSOLUTE 0.05 10/3/uL (0.0-0.53); HEMATOCRIT 26.9 % (36.0-48.0); HEMOGLOBIN 8.7 g/dL (12.0-16.0); IMMATURE GRANULOCYTES 0.3 %; IMMATURE GRANULOCYTES ABSOLUTE 0.03 10/3/uL (0.0-0.11); LYMPHOCYTES 13.3 %; LYMPHOCYTES ABSOLUTE 1.17 10/3/uL (0.67-4.30); MEAN CORPUS HGB CONC 32.3 g/dL (32.0-36.0); MEAN CORPUSCULAR HEMOGLOB 26.8 pg (26.0-34.0); MEAN CORPUSCULAR VOLUME 82.8 fL (80-100); MEAN PLATELET VOLUME 11.2 fL (9.2-13.0); MONOCYTES 10.6 %; MONOCYTES ABSOLUTE 0.93 10/3/uL (0.21-1.20); NEUTROPHILS 75.1 %; NEUTROPHILS ABSOLUTE 6.62 10/3/uL (2.02-8.40); PLATELET COUNT 195 10/3/uL (150-400); RED CELL COUNT 3.25 10/6/uL (4.0-5.6); WHITE BLOOD CELLS 8.8 10/3/uL (4.5-10.5)
[2016-07-26 05:25] LABS: MANUAL DIFF NO %
[2016-07-26 05:30] LABS: INTERNATIONAL NORMAL RATI 1.2 UNITS (-); PROTIME (NOT ORD) 14.8 SEC (12.0-14.5)
[2016-07-26 05:39] LABS: ALBUMIN 2.5 G/DL (3.5-5.0); CALCIUM, SERUM 8.1 MG/DL (8.5-10.4); CHLORIDE, SERUM 108 MMOL/L (96-112); CO2 (CARBON DIOXIDE) 24 MMOL/L (24-34); DIRECT BILIRUBIN 0.2 MG/DL (0.0-0.4); INDIRECT BILIRUBIN(NOT ORDER) 0.3 MG/DL (0.1-0.9); SGOT(AST) 5 U/L (5-40); SGPT(ALT) 10 U/L (5-65); SODIUM, SERUM 141 MMOL/L (135-148); TOTAL BILIRUBIN 0.5 MG/DL (0-1.2); TOTAL PROTEIN 5.9 G/DL (6.0-8.5)
[2016-07-26 05:45] LABS: ALKALINE PHOSPHATASE 127 U/L (45-117); BUN (BLOOD UREA NITROGEN) 70 MG/DL (6-23); CREATININE 3.28 MG/DL (0.55-1.02); GFR AFRICAN AMERICAN 16 ML/MIN (>=60); GFR NON AFRICAN AMERICAN 14 ML/MIN (>=60); GLUCOSE, SERUM 104 MG/DL (60-99); PHOSPHORUS, SERUM 2.4 MG/DL (2.5-4.5); POTASSIUM, SERUM 3.9 MMOL/L (3.5-5.3); TROPONIN I 1.44 NG/ML (<0.05)
[2016-07-27 04:16] LABS: BASOPHILS 0.1 %; BASOPHILS ABSOLUTE 0.01 10/3/uL (0.0-0.16); EOSINOPHILS 0.3 %; EOSINOPHILS ABSOLUTE 0.03 10/3/uL (0.0-0.53); HEMOGLOBIN 7.7 g/dL (12.0-16.0); IMMATURE GRANULOCYTES 0.3 %; IMMATURE GRANULOCYTES ABSOLUTE 0.03 10/3/uL (0.0-0.11); LYMPHOCYTES 16.7 %; LYMPHOCYTES ABSOLUTE 1.55 10/3/uL (0.67-4.30); MANUAL DIFF NO %; MEAN CORPUS HGB CONC 32.1 g/dL (32.0-36.0); MEAN CORPUSCULAR HEMOGLOB 26.6 pg (26.0-34.0); MEAN CORPUSCULAR VOLUME 82.8 fL (80-100); MONOCYTES 8.3 %; MONOCYTES ABSOLUTE 0.77 10/3/uL (0.21-1.20); NEUTROPHILS 74.3 %; NEUTROPHILS ABSOLUTE 6.88 10/3/uL (2.02-8.40); PLATELET COUNT 165 10/3/uL (150-400); RBC DISTRIBUTION WIDTH 18.1 % (12.0-16.0); WHITE BLOOD CELLS 9.3 10/3/uL (4.5-10.5)
[2016-07-27 04:31] LABS: CALCIUM, SERUM 8.1 MG/DL (8.5-10.4); CHLORIDE, SERUM 107 MMOL/L (96-112); CO2 (CARBON DIOXIDE) 24 MMOL/L (24-34); CREATININE 3.61 MG/DL (0.55-1.02); DIRECT BILIRUBIN 0.3 MG/DL (0.0-0.4); GFR AFRICAN AMERICAN 14 ML/MIN (>=60); GFR NON AFRICAN AMERICAN 12 ML/MIN (>=60); GLUCOSE, SERUM 114 MG/DL (60-99); INDIRECT BILIRUBIN(NOT ORDER) 0.3 MG/DL (0.1-0.9); PHOSPHORUS, SERUM 3.1 MG/DL (2.5-4.5); POTASSIUM, SERUM 3.8 MMOL/L (3.5-5.3); SGOT(AST) 5 U/L (5-40); SGPT(ALT) 8 U/L (5-65); SODIUM, SERUM 140 MMOL/L (135-148); TOTAL BILIRUBIN 0.6 MG/DL (0-1.2); TOTAL PROTEIN 5.2 G/DL (6.0-8.5)
[2016-07-27 04:33] LABS: ALKALINE PHOSPHATASE 115 U/L (45-117); BUN (BLOOD UREA NITROGEN) 79 MG/DL (6-23)
[2016-07-27 05:09] LABS: INTERNATIONAL NORMAL RATI 1.3 UNITS (-); PROTIME (NOT ORD) 16.3 SEC (12.0-14.5)
[2016-07-28 03:57] LABS: BASOPHILS 0.2 %; BASOPHILS ABSOLUTE 0.01 10/3/uL (0.0-0.16); EOSINOPHILS 1.3 %; EOSINOPHILS ABSOLUTE 0.08 10/3/uL (0.0-0.53); HEMATOCRIT 23.1 % (36.0-48.0); HEMOGLOBIN 7.3 g/dL (12.0-16.0); IMMATURE GRANULOCYTES 0.3 %; IMMATURE GRANULOCYTES ABSOLUTE 0.02 10/3/uL (0.0-0.11); LYMPHOCYTES 17.6 %; LYMPHOCYTES ABSOLUTE 1.07 10/3/uL (0.67-4.30); MANUAL DIFF NO %; MEAN CORPUS HGB CONC 31.6 g/dL (32.0-36.0); MEAN CORPUSCULAR HEMOGLOB 26.4 pg (26.0-34.0); MEAN CORPUSCULAR VOLUME 83.7 fL (80-100); MEAN PLATELET VOLUME 11.2 fL (9.2-13.0); MONOCYTES 5.9 %; MONOCYTES ABSOLUTE 0.36 10/3/uL (0.21-1.20); NEUTROPHILS 74.7 %; NEUTROPHILS ABSOLUTE 4.54 10/3/uL (2.02-8.40); PLATELET COUNT 158 10/3/uL (150-400); RBC DISTRIBUTION WIDTH 17.7 % (12.0-16.0); RED CELL COUNT 2.76 10/6/uL (4.0-5.6); WHITE BLOOD CELLS 6.1 10/3/uL (4.5-10.5)
[2016-07-28 04:09] LABS: ALBUMIN 1.9 G/DL (3.5-5.0); CALCIUM, SERUM 8.3 MG/DL (8.5-10.4); CHLORIDE, SERUM 106 MMOL/L (96-112); CO2 (CARBON DIOXIDE) 21 MMOL/L (24-34); CREATININE 3.46 MG/DL (0.55-1.02); GFR AFRICAN AMERICAN 15 ML/MIN (>=60); GFR NON AFRICAN AMERICAN 13 ML/MIN (>=60); GLUCOSE, SERUM 103 MG/DL (60-99); SODIUM, SERUM 140 MMOL/L (135-148)
[2016-07-28 04:10] LABS: BUN (BLOOD UREA NITROGEN) 83 MG/DL (6-23); PHOSPHORUS, SERUM 4.1 MG/DL (2.5-4.5)
[2016-07-29 05:14] LABS: BASOPHILS 0 %; EOSINOPHILS 1.5 %; EOSINOPHILS ABSOLUTE 0.08 10/3/uL (0.0-0.53); HEMATOCRIT 23.1 % (36.0-48.0); HEMOGLOBIN 7.4 g/dL (12.0-16.0); IMMATURE GRANULOCYTES 0.4 %; IMMATURE GRANULOCYTES ABSOLUTE 0.02 10/3/uL (0.0-0.11); LYMPHOCYTES ABSOLUTE 0.78 10/3/uL (0.67-4.30); MANUAL DIFF NO %; MEAN CORPUSCULAR HEMOGLOB 26.5 pg (26.0-34.0); MEAN CORPUSCULAR VOLUME 82.8 fL (80-100); MONOCYTES 6.9 %; MONOCYTES ABSOLUTE 0.36 10/3/uL (0.21-1.20); NEUTROPHILS 76.2 %; NEUTROPHILS ABSOLUTE 3.95 10/3/uL (2.02-8.40); PLATELET COUNT 162 10/3/uL (150-400); RBC DISTRIBUTION WIDTH 17.5 % (12.0-16.0); RED CELL COUNT 2.79 10/6/uL (4.0-5.6); WHITE BLOOD CELLS 5.2 10/3/uL (4.5-10.5)
[2016-07-29 05:24] LABS: CALCIUM, SERUM 8.5 MG/DL (8.5-10.4); CHLORIDE, SERUM 111 MMOL/L (96-112); CO2 (CARBON DIOXIDE) 21 MMOL/L (24-34); GLUCOSE, SERUM 123 MG/DL (60-99); POTASSIUM, SERUM 3.9 MMOL/L (3.5-5.3); SODIUM, SERUM 142 MMOL/L (135-148)
[2016-07-29 05:31] LABS: BUN (BLOOD UREA NITROGEN) 79 MG/DL (6-23); CREATININE 2.87 MG/DL (0.55-1.02); GFR AFRICAN AMERICAN 19 ML/MIN (>=60); GFR NON AFRICAN AMERICAN 16 ML/MIN (>=60); PHOSPHORUS, SERUM 2.1 MG/DL (2.5-4.5)
[2016-07-30 05:45] LABS: BASOPHILS 0.3 %; BASOPHILS ABSOLUTE 0.01 10/3/uL (0.0-0.16); EOSINOPHILS 2.3 %; EOSINOPHILS ABSOLUTE 0.09 10/3/uL (0.0-0.53); HEMATOCRIT 21.1 % (36.0-48.0); HEMOGLOBIN 6.8 g/dL (12.0-16.0); IMMATURE GRANULOCYTES 0.5 %; IMMATURE GRANULOCYTES ABSOLUTE 0.02 10/3/uL (0.0-0.11); LYMPHOCYTES 24.9 %; LYMPHOCYTES ABSOLUTE 0.96 10/3/uL (0.67-4.30); MEAN CORPUS HGB CONC 32.2 g/dL (32.0-36.0); MEAN CORPUSCULAR HEMOGLOB 26.5 pg (26.0-34.0); MEAN CORPUSCULAR VOLUME 82.1 fL (80-100); MEAN PLATELET VOLUME 10.5 fL (9.2-13.0); MONOCYTES 8.3 %; MONOCYTES ABSOLUTE 0.32 10/3/uL (0.21-1.20); NEUTROPHILS 63.7 %; NEUTROPHILS ABSOLUTE 2.46 10/3/uL (2.02-8.40); PLATELET COUNT 147 10/3/uL (150-400); RBC DISTRIBUTION WIDTH 17.7 % (12.0-16.0); RED CELL COUNT 2.57 10/6/uL (4.0-5.6); WHITE BLOOD CELLS 3.9 10/3/uL (4.5-10.5)
[2016-07-30 05:46] LABS: MANUAL DIFF NO %
[2016-07-30 05:49] LABS: A/G RATIO 0.6 (0.7-1.9); ALBUMIN 1.8 G/DL (3.5-5.0); ALKALINE PHOSPHATASE 126 U/L (45-117); CALCIUM, SERUM 8.2 MG/DL (8.5-10.4); CHLORIDE, SERUM 112 MMOL/L (96-112); CO2 (CARBON DIOXIDE) 23 MMOL/L (24-34); CREATININE 2.52 MG/DL (0.55-1.02); GFR AFRICAN AMERICAN 22 ML/MIN (>=60); GFR NON AFRICAN AMERICAN 19 ML/MIN (>=60); GLOBULIN 3.2 G/DL (2.5-4.1); PHOSPHORUS, SERUM 2.1 MG/DL (2.5-4.5); SGOT(AST) 4 U/L (5-40); SODIUM, SERUM 143 MMOL/L (135-148); TOTAL BILIRUBIN 0.3 MG/DL (0-1.2)
[2016-07-30 05:50] LABS: BUN (BLOOD UREA NITROGEN) 71 MG/DL (6-23); GLUCOSE, SERUM 75 MG/DL (60-99); SGPT(ALT) < 6 U/L (5-65)
[2016-07-31 06:04] LABS: BASOPHILS 0 %; EOSINOPHILS 3.8 %; EOSINOPHILS ABSOLUTE 0.17 10/3/uL (0.0-0.53); IMMATURE GRANULOCYTES 0.2 %; IMMATURE GRANULOCYTES ABSOLUTE 0.01 10/3/uL (0.0-0.11); LYMPHOCYTES 19.8 %; LYMPHOCYTES ABSOLUTE 0.88 10/3/uL (0.67-4.30); MEAN CORPUS HGB CONC 32.4 g/dL (32.0-36.0); MEAN CORPUSCULAR HEMOGLOB 26.3 pg (26.0-34.0); MEAN CORPUSCULAR VOLUME 81.3 fL (80-100); MEAN PLATELET VOLUME 10.8 fL (9.2-13.0); MONOCYTES 7.9 %; MONOCYTES ABSOLUTE 0.35 10/3/uL (0.21-1.20); NEUTROPHILS 68.3 %; NEUTROPHILS ABSOLUTE 3.04 10/3/uL (2.02-8.40); PLATELET COUNT 176 10/3/uL (150-400); RBC DISTRIBUTION WIDTH 18.1 % (12.0-16.0); WHITE BLOOD CELLS 4.5 10/3/uL (4.5-10.5)
[2016-07-31 06:05] LABS: HEMATOCRIT 25.6 % (36.0-48.0); HEMOGLOBIN 8.3 g/dL (12.0-16.0); MANUAL DIFF NO %; RED CELL COUNT 3.15 10/6/uL (4.0-5.6)
[2016-07-31 06:07] LABS: CALCIUM, SERUM 8.5 MG/DL (8.5-10.4); CHLORIDE, SERUM 115 MMOL/L (96-112); CO2 (CARBON DIOXIDE) 20 MMOL/L (24-34); CREATININE 2.46 MG/DL (0.55-1.02); GFR AFRICAN AMERICAN 23 ML/MIN (>=60); GFR NON AFRICAN AMERICAN 19 ML/MIN (>=60); POTASSIUM, SERUM 4.4 MMOL/L (3.5-5.3); SODIUM, SERUM 145 MMOL/L (135-148)
[2016-07-31 06:13] LABS: BUN (BLOOD UREA NITROGEN) 61 MG/DL (6-23); GLUCOSE, SERUM 107 MG/DL (60-99)
[2016-08-01 06:37] LABS: BASOPHILS 0.2 %; BASOPHILS ABSOLUTE 0.01 10/3/uL (0.0-0.16); EOSINOPHILS 3.1 %; EOSINOPHILS ABSOLUTE 0.13 10/3/uL (0.0-0.53); HEMATOCRIT 25.5 % (36.0-48.0); HEMOGLOBIN 7.9 g/dL (12.0-16.0); IMMATURE GRANULOCYTES 0.5 %; IMMATURE GRANULOCYTES ABSOLUTE 0.02 10/3/uL (0.0-0.11); LYMPHOCYTES ABSOLUTE 0.88 10/3/uL (0.67-4.30); MEAN CORPUSCULAR HEMOGLOB 25.9 pg (26.0-34.0); MEAN CORPUSCULAR VOLUME 83.6 fL (80-100); MEAN PLATELET VOLUME 11.2 fL (9.2-13.0); MONOCYTES ABSOLUTE 0.42 10/3/uL (0.21-1.20); NEUTROPHILS 65.2 %; NEUTROPHILS ABSOLUTE 2.73 10/3/uL (2.02-8.40); PLATELET COUNT 196 10/3/uL (150-400); RBC DISTRIBUTION WIDTH 17.9 % (12.0-16.0); RED CELL COUNT 3.05 10/6/uL (4.0-5.6); WHITE BLOOD CELLS 4.2 10/3/uL (4.5-10.5)
[2016-08-01 06:38] LABS: MANUAL DIFF NO %
[2016-08-01 06:45] LABS: BUN (BLOOD UREA NITROGEN) 63 MG/DL (6-23); CALCIUM, SERUM 8.2 MG/DL (8.5-10.4); CHLORIDE, SERUM 113 MMOL/L (96-112); CO2 (CARBON DIOXIDE) 23 MMOL/L (24-34); CREATININE 2.21 MG/DL (0.55-1.02); GFR AFRICAN AMERICAN 26 ML/MIN (>=60); GFR NON AFRICAN AMERICAN 22 ML/MIN (>=60); GLUCOSE, SERUM 58 MG/DL (60-99); POTASSIUM, SERUM 4.9 MMOL/L (3.5-5.3); SODIUM, SERUM 143 MMOL/L (135-148)
[2016-08-02 06:57] LABS: BASOPHILS 0.3 %; BASOPHILS ABSOLUTE 0.01 10/3/uL (0.0-0.16); EOSINOPHILS 4.1 %; EOSINOPHILS ABSOLUTE 0.15 10/3/uL (0.0-0.53); HEMATOCRIT 24.6 % (36.0-48.0); HEMOGLOBIN 7.8 g/dL (12.0-16.0); IMMATURE GRANULOCYTES 0.5 %; IMMATURE GRANULOCYTES ABSOLUTE 0.02 10/3/uL (0.0-0.11); LYMPHOCYTES 23.8 %; LYMPHOCYTES ABSOLUTE 0.88 10/3/uL (0.67-4.30); MEAN CORPUS HGB CONC 31.7 g/dL (32.0-36.0); MEAN CORPUSCULAR HEMOGLOB 26.4 pg (26.0-34.0); MEAN CORPUSCULAR VOLUME 83.4 fL (80-100); MEAN PLATELET VOLUME 11.3 fL (9.2-13.0); MONOCYTES 9.2 %; MONOCYTES ABSOLUTE 0.34 10/3/uL (0.21-1.20); NEUTROPHILS 62.1 %; NEUTROPHILS ABSOLUTE 2.29 10/3/uL (2.02-8.40); PLATELET COUNT 188 10/3/uL (150-400); RBC DISTRIBUTION WIDTH 17.6 % (12.0-16.0); RED CELL COUNT 2.95 10/6/uL (4.0-5.6); WHITE BLOOD CELLS 3.7 10/3/uL (4.5-10.5)
[2016-08-02 07:00] LABS: MANUAL DIFF NO %
[2016-08-02 07:21] LABS: CALCIUM, SERUM 8.2 MG/DL (8.5-10.4); CHLORIDE, SERUM 113 MMOL/L (96-112); CO2 (CARBON DIOXIDE) 24 MMOL/L (24-34); GFR AFRICAN AMERICAN 29 ML/MIN (>=60); GFR NON AFRICAN AMERICAN 25 ML/MIN (>=60); POTASSIUM, SERUM 4.4 MMOL/L (3.5-5.3); SODIUM, SERUM 143 MMOL/L (135-148)
[2016-08-02 07:23] LABS: BUN (BLOOD UREA NITROGEN) 52 MG/DL (6-23); GLUCOSE, SERUM 107 MG/DL (60-99)
[2016-08-03 05:02] LABS: HEMATOCRIT 26.5 % (36.0-48.0); HEMOGLOBIN 8.7 g/dL (12.0-16.0); MEAN CORPUS HGB CONC 32.8 g/dL (32.0-36.0); MEAN CORPUSCULAR HEMOGLOB 26.9 pg (26.0-34.0); MEAN CORPUSCULAR VOLUME 81.8 fL (80-100); MEAN PLATELET VOLUME 10.8 fL (9.2-13.0); PLATELET COUNT 180 10/3/uL (150-400); RBC DISTRIBUTION WIDTH 17.2 % (12.0-16.0); RED CELL COUNT 3.24 10/6/uL (4.0-5.6); WHITE BLOOD CELLS 4.7 10/3/uL (4.5-10.5)
[2016-08-03 05:04] LABS: MANUAL DIFF YES %
[2016-08-03 05:20] LABS: CALCIUM, SERUM 8.2 MG/DL (8.5-10.4); CHLORIDE, SERUM 112 MMOL/L (96-112); CO2 (CARBON DIOXIDE) 24 MMOL/L (24-34); CREATININE 1.88 MG/DL (0.55-1.02); GFR AFRICAN AMERICAN 31 ML/MIN (>=60); GFR NON AFRICAN AMERICAN 27 ML/MIN (>=60); GLUCOSE, SERUM 105 MG/DL (60-99); POTASSIUM, SERUM 4.5 MMOL/L (3.5-5.3); SODIUM, SERUM 143 MMOL/L (135-148)
[2016-08-03 05:22] LABS: BUN (BLOOD UREA NITROGEN) 45 MG/DL (6-23)
[2016-08-03 05:45] LABS: SEGMENTED NEUTROPHIL (0) 75 %; TOTAL NUCLEATED CELLS 100
[2016-08-03 05:46] LABS: ANISOCYTOSIS 1+ (5-10/OIF) (0-5/OIF); BAND NEUTROPHILS 6 %; IMMATURE GRANS ABSOLUTE (CALC) 0.19 10/3/uL (0.0-0.11); LYMPHOCYTES 11 %; LYMPHOCYTES ABSOLUTE (CALC) 0.52 10/3/uL (0.67-4.30); METAMYELOCYTES 4 %; MONOCYTES 4 %; MONOCYTES ABSOLUTE (CALC) 0.19 10/3/uL (0.21-1.20); NEUTROPHILS ABSOLUTE (CALC) 3.81 10/3/uL (2.02-8.40); PLATELET ESTIMATE ADQ (ADEQUATE)
[2016-08-04 06:52] LABS: BASOPHILS 0.3 %; BASOPHILS ABSOLUTE 0.01 10/3/uL (0.0-0.16); EOSINOPHILS 3.6 %; EOSINOPHILS ABSOLUTE 0.13 10/3/uL (0.0-0.53); HEMATOCRIT 27.2 % (36.0-48.0); HEMOGLOBIN 8.7 g/dL (12.0-16.0); IMMATURE GRANULOCYTES 0.6 %; IMMATURE GRANULOCYTES ABSOLUTE 0.02 10/3/uL (0.0-0.11); LYMPHOCYTES 24.4 %; LYMPHOCYTES ABSOLUTE 0.88 10/3/uL (0.67-4.30); MEAN CORPUSCULAR HEMOGLOB 26.4 pg (26.0-34.0); MEAN CORPUSCULAR VOLUME 82.4 fL (80-100); MONOCYTES ABSOLUTE 0.36 10/3/uL (0.21-1.20); NEUTROPHILS 61.1 %; PLATELET COUNT 183 10/3/uL (150-400); WHITE BLOOD CELLS 3.6 10/3/uL (4.5-10.5)
[2016-08-04 06:59] LABS: CALCIUM, SERUM 8.4 MG/DL (8.5-10.4); CHLORIDE, SERUM 110 MMOL/L (96-112); CO2 (CARBON DIOXIDE) 23 MMOL/L (24-34); CREATININE 1.68 MG/DL (0.55-1.02); GFR AFRICAN AMERICAN 36 ML/MIN (>=60); GFR NON AFRICAN AMERICAN 31 ML/MIN (>=60); POTASSIUM, SERUM 4.3 MMOL/L (3.5-5.3); SODIUM, SERUM 143 MMOL/L (135-148)
[2016-08-04 07:00] LABS: BUN (BLOOD UREA NITROGEN) 36 MG/DL (6-23); GLUCOSE, SERUM 70 MG/DL (60-99)
[2016-08-04 07:06] LABS: MANUAL DIFF NO %
[2016-08-05 05:29] LABS: BUN (BLOOD UREA NITROGEN) 34 MG/DL (6-23); CALCIUM, SERUM 8.4 MG/DL (8.5-10.4); CHLORIDE, SERUM 109 MMOL/L (96-112); CO2 (CARBON DIOXIDE) 22 MMOL/L (24-34); CREATININE 1.78 MG/DL (0.55-1.02); GFR AFRICAN AMERICAN 33 ML/MIN (>=60); GFR NON AFRICAN AMERICAN 29 ML/MIN (>=60); POTASSIUM, SERUM 4.4 MMOL/L (3.5-5.3); SODIUM, SERUM 140 MMOL/L (135-148)
[2016-08-05 05:39] LABS: GLUCOSE, SERUM 88 MG/DL (60-99); PHOSPHORUS, SERUM 2.8 MG/DL (2.5-4.5)
[2016-08-05] MEDS ORDERED: ELIQUIS 2.5 MG2.5 MG PO (12:44)
[2016-08-05] MEDS ORDERED: SODBICAR10 PO (12:45)
== END 2016-08-05 15:30 | DRG 682 ==
LOC: ER 12:34 → 6NO 16:03 → IMCU 07-24 12:09 → 2SO 07-28 20:17
PROVIDERS: Hospitalist; Internal Medicine; Internal Medicine Nephrology; Nurse Practitioner Family
PROC: 0JH606Z Insertion of Pacemaker, Dual Chamber into Chest Subcutaneous Tissue and Fascia, Open Approach (ICD-10-PCS; principal; 2016-07-27)
PROC: 02HK3JZ Insertion of Pacemaker Lead into Right Ventricle, Percutaneous Approach (ICD-10-PCS; 2016-07-27)
PROC: 02H63JZ Insertion of Pacemaker Lead into Right Atrium, Percutaneous Approach (ICD-10-PCS; 2016-07-27)
PROC: 30233N1 Transfusion of Nonautologous Red Blood Cells into Peripheral Vein, Percutaneous Approach (ICD-10-PCS; 2016-07-30)
DX: N17.0 Acute kidney failure with tubular necrosis (principal); G93.41 Metabolic encephalopathy; E87.2 Acidosis; Z94.4 Liver transplant status; I24.8 Other forms of acute ischemic heart disease; I48.0 Paroxysmal atrial fibrillation; I50.32 Chronic diastolic (congestive) heart failure; I13.0 Hypertensive heart and chronic kidney disease with heart failure and stage 1 through stage 4 chronic kidney disease, or unspecified chronic kidney disease; E66.01 Morbid (severe) obesity due to excess calories; E86.0 Dehydration; E10.22 Type 1 diabetes mellitus with diabetic chronic kidney disease; K75.81 Nonalcoholic steatohepatitis (NASH); D64.9 Anemia, unspecified; N18.4 Chronic kidney disease, stage 4 (severe); I25.10 Atherosclerotic heart disease of native coronary artery without angina pectoris; I73.9 Peripheral vascular disease, unspecified; R19.7 Diarrhea, unspecified; R06.6 Hiccough; G47.00 Insomnia, unspecified; Z79.4 Long term (current) use of insulin; Z95.1 Presence of aortocoronary bypass graft; Z99.2 Dependence on renal dialysis; Z98.890 Other specified postprocedural states
CPT/HCPCS: 33208; 36415; 71010; 74022; 80048; 80053; 80069; 80076; 80197; 81001; 82150; 82550; 82553; 82962; 83036; 83605; 83615; 83690; 83735; 84100; 84145; 84443; 84484; 85025; 85610; 86850; 86900; 86901; 86920; 86922; 87040; 87086; 87641; 93005; 96374; 97110-GO; 97110-GP; 97162-GP; 97166-GO; 97530-GP; 97535-GO; 99285; A9270-GY; C1785; C1892; C1898; C8929; G8978-CL-GP; G8979-CJ-GP; G8987-CK-GO; G8988-CK-GO; G8989-CK-GO; J0360; J0690; J2370; J2405; J2765; J3475; J7507; P9016; P9047; Q9957